=== PATIENT | male | born 1995 | race American Indian/Alaskan Native ===

== ENCOUNTER 2024-02-10 20:02 | Emergency (ER) | payer BC, OTHER ==
[~2024-02-10] VITALS: Ht 190.5 cm; Wt 96.3 kg
[2024-02-10 21:34] VITALS: BP 137/67
== END 2024-02-10 21:30 | disposition home or self-care (01) ==
LOC: ED 20:02
DX: S61.211A Laceration without foreign body of left index finger without damage to nail, initial encounter (principal); W23.0XXA Caught, crushed, jammed, or pinched between moving objects, initial encounter
CPT/HCPCS: 73140

== ENCOUNTER 2024-12-14 14:18 | Emergency (ER) | payer OTHER ==
[~2024-12-14] VITALS: Ht 190.5 cm; Wt 99.0 kg
[2024-12-14] MEDS ORDERED: ANASTROZOLE1 MG PO (14:43)
[2024-12-14] MEDS ORDERED: TESTOSTERO200 MG/1 M IM (14:43)
[2024-12-14] MEDS ORDERED: ZEPBOUND2.5 MG/0.5 SQ (14:46)
[2024-12-14] MEDS ORDERED: ondansetron HCL 4 MG/2 ML VIAL IV ONE (15:00)
[2024-12-14] MEDS ORDERED: SODIUM CHLORIDE 0.9% 1,000 ML IV ONE (15:00)
[2024-12-14 15:07] LABS: BASOPHILS 0.2 % (0-2); EOSINOPHILS 0.1 % (0-6); HEMATOCRIT 46.7 % (35.0-50.0); HEMOGLOBIN 16.3 g/dL (12.0-18.0); LYMPHOCYTES 8.2 % (24-44); MCH 29.1 (27-36); MCHC 34.8 g/dl (30-36); MCV 83.7 fl (81-99); MONOCYTES 2.8 % (0-12); NEUTROPHILS 88.7 % (39-80); PLATELET COUNT 267 K/uL (140-440); RBC 5.58 M/ul (4.3-5.7); RDW 13.6 (10.5-15.0)
[2024-12-14 15:24] LABS: ALBUMIN 4.2 g/dL (3.4-5.0); ALBUMIN/GLOBULIN RATIO 1.31 (1.1-2.4); ANION GAP 14.5 (7-21); BILIRUBIN, TOTAL 0.7 mg/dL (0.2-1.0); BUN/CREATININE RATIO 10.76 (6.0-28.6); CREATININE, SERUM 1.3 mg/dL (0.70-1.30); POTASSIUM 3.5 mmol/L (3.5-5.1); PROTEIN, TOTAL 7.4 g/dL (6.4-8.2)
[2024-12-14 17:00] VITALS: BP 125/67
== END 2024-12-14 17:00 | disposition home or self-care (01) ==
LOC: ED 14:18
PROVIDERS: Emergency Medicine
DX: H53.9 Unspecified visual disturbance (principal)
CPT/HCPCS: 36415; 80053; 85025; 96360; 99284-25; J7030